=== PATIENT | female | born 1995 | race Caucasian/White ===

== ENCOUNTER 2023-08-10 15:49 | Emergency (ER) | payer BC, MEDICAID ==
[~2023-08-10] VITALS: Ht 162.6 cm; Wt 88.5 kg
[2023-08-10 16:29] VITALS: O2SAT 98
[2023-08-10 16:35] LABS: BASOPHILS % 0.3 % (0.0-2.0); EOSINOPHILS % 0.1 % (0.0-5.0); HEMATOCRIT. 42.2 % (36.0-48.0); HEMOGLOBIN. 14.2 g/dL (12.0-16.0); LYMPHOCYTES % 11.8 % (20.0-50.0); MEAN CORPUSCULAR HEMOGLOBIN 30.8 pg (28.0-32.0); MEAN CORPUSCULAR HGB CONC 33.7 g/dL (31.0-37.0); MEAN CORPUSCULAR VOLUME 91.3 fL (81.0-99.0); MEAN PLATELET VOLUME 9.5 fl (7.4-10.4); MONOCYTES % 4.9 % (2.0-8.0); NEUTROPHILS % 82.9 % (40.0-76.0); PLATELET 270 x1000/uL (130-400); RED BLOOD CELL COUNT 4.63 mill/uL (4.2-5.4); RED CELL DISTRIBUTION WIDTH 14.3 % (11.6-14.6); WHITE BLOOD COUNT 16.2 x1000/uL (4.5-11.0)
[2023-08-10 16:44] LABS: CLARITY URINE CLOUDY (CLEAR); COLOR URINE YELLOW (YELLOW); GLUCOSE URINE NEGATIVE (NEGATIVE); KETONES URINE 1+ (NEGATIVE); LEUKOCYTE ESTERASE URINE NEGATIVE (NEGATIVE); NITRITE URINE NEGATIVE (NEGATIVE); OCCULT BLOOD URINE NEGATIVE (NEGATIVE); PH URINE 7.5 (4.5-8.0); PROTEIN URINE NEGATIVE (NEGATIVE); SPECIFIC GRAVITY URINE 1.008 (1.005-1.030); UROBILINOGEN URINE 0.2 E.U./dL (0.2-1.0)
[2023-08-10 16:50] LABS: ALANINE AMINOTRANSFERASE 27 IU/L (10-49); ALBUMIN 4.8 g/dL (3.2-4.8); ASPARTATE AMINOTRANSFERASE 11 IU/L (<34); BILIRUBIN TOTAL 0.7 mg/dL (0.1-1.0); CALCIUM 10.1 mg/dL (8.7-10.4); CARBON DIOXIDE 27 mEq/L (21-32); CHLORIDE 103 mEq/L (98-107); CREATININE 0.7 mg/dL (0.6-1.0); GLUCOSE 113 mg/dL (70-105); POTASSIUM 4.2 mEq/L (3.5-5.1); PROTEIN TOTAL 7.8 g/dL (6.0-8.3); SODIUM 137 mEq/L (136-145); UREA NITROGEN BLOOD 6 mg/dL (9-23)
[2023-08-10 17:25] LABS: BACTERIA URINE 1+; RBC URINE 0-2 /hpf (0-2); SQUAMOUS EPITHELIAL CELL URINE 1+ /lpf (RARE/1+); WBC URINE 0-2 /hpf (0-2)
[2023-08-10] MEDS ORDERED: MAGNESIUM/ALUMINUM HYDROXIDE/SIMETHICONE 30ML UDC PO STA (18:05)
[2023-08-10] MEDS ORDERED: ONDANSETRON 4MG ODT PO STA (18:05)
[2023-08-10] MEDS ORDERED: DICYCLOMINE 10 MG/5 ML ORAL SYR PO STA (18:05)
[2023-08-10] MEDS ORDERED: SODIUM CHLORIDE 0.9% 1,000 ML IV ONE (18:15)
[2023-08-10] MEDS ORDERED: CAPSAICIN 0.075% CREAM 60GM TOP PRN (18:15)
[2023-08-10] MEDS ORDERED: HALOPERIDOL LACTATE 5MG/ML VIAL IM ONE (18:15)
[2023-08-10] MEDS ORDERED: MAGNESIUM/ALUMINUM HYDROXIDE/SIMETHICONE 30ML UDC PO NR (20:45)
[2023-08-10] MEDS ORDERED: ONDANSETRON 4MG ODT PO NR (20:45)
[2023-08-10] MEDS ORDERED: HALOPERIDOL LACTATE 5MG/ML VIAL IM NR (20:45)
[2023-08-10 22:03] VITALS: BP 135/66; PULSE 96; RESP 16; TEMP 98.4
== END 2023-08-10 22:06 | disposition home or self-care (01) ==
LOC: ER 15:49
DX: K29.70 Gastritis, unspecified, without bleeding (principal); Z98.890 Other specified postprocedural states
CPT/HCPCS: 99284; 96360; 96361; 71045; 80053; 81003; 81025; 83690; 85025; 36415; 96372; Q0162; J1630; J7030

== ENCOUNTER 2023-08-15 07:25 | Emergency (ER) | payer BC, MEDICAID ==
[~2023-08-15] VITALS: Ht 165.1 cm; Wt 90.0 kg
[2023-08-15 07:32] VITALS: BP 144/79; PULSE 106; RESP 20; TEMP 97.7; O2SAT 97
[2023-08-15] MEDS ORDERED: KETOROLAC 60MG/2ML VIAL IM STA (08:38)
[2023-08-15] MEDS ORDERED: ONDANSETRON 4MG ODT PO ONE (09:00)
[2023-08-15 09:09] LABS: BASOPHILS % 0.4 % (0.0-2.0); EOSINOPHILS % 0.4 % (0.0-5.0); HEMATOCRIT. 41.1 % (36.0-48.0); HEMOGLOBIN. 13.5 g/dL (12.0-16.0); MEAN CORPUSCULAR HEMOGLOBIN 30.4 pg (28.0-32.0); MEAN CORPUSCULAR HGB CONC 32.9 g/dL (31.0-37.0); MEAN CORPUSCULAR VOLUME 92.5 fL (81.0-99.0); MEAN PLATELET VOLUME 9.2 fl (7.4-10.4); MONOCYTES % 5.2 % (2.0-8.0); PLATELET 279 x1000/uL (130-400); RED BLOOD CELL COUNT 4.44 mill/uL (4.2-5.4); RED CELL DISTRIBUTION WIDTH 13.9 % (11.6-14.6); WHITE BLOOD COUNT 12.5 x1000/uL (4.5-11.0)
[2023-08-15 09:19] LABS: ALANINE AMINOTRANSFERASE 10 IU/L (10-49); ALBUMIN 4.4 g/dL (3.2-4.8); ASPARTATE AMINOTRANSFERASE 9 IU/L (<34); BILIRUBIN TOTAL 0.6 mg/dL (0.1-1.0); CALCIUM 9.7 mg/dL (8.7-10.4); CARBON DIOXIDE 22 mEq/L (21-32); CHLORIDE 107 mEq/L (98-107); CREATININE 0.6 mg/dL (0.6-1.0); GLUCOSE 108 mg/dL (70-105); POTASSIUM 3.9 mEq/L (3.5-5.1); PROTEIN TOTAL 7.4 g/dL (6.0-8.3); SODIUM 137 mEq/L (136-145); UREA NITROGEN BLOOD 6 mg/dL (9-23)
[2023-08-15 09:41] LABS: HCG SCREEN POSITIVE
[2023-08-15 10:29] LABS: CLARITY URINE CLEAR (CLEAR); COLOR URINE YELLOW (YELLOW); GLUCOSE URINE NEGATIVE (NEGATIVE); KETONES URINE NEGATIVE (NEGATIVE); LEUKOCYTE ESTERASE URINE NEGATIVE (NEGATIVE); NITRITE URINE NEGATIVE (NEGATIVE); OCCULT BLOOD URINE NEGATIVE (NEGATIVE); PH URINE 8.5 (4.5-8.0); PROTEIN URINE NEGATIVE (NEGATIVE); SPECIFIC GRAVITY URINE 1.018 (1.005-1.030); UROBILINOGEN URINE 0.2 E.U./dL (0.2-1.0)
[2023-08-15] MEDS ORDERED: FAMOTIDINE 20MG TABLET PO ONE (10:30)
== END 2023-08-15 11:20 | disposition home or self-care (01) ==
LOC: ER 07:45
DX: O26.891 Other specified pregnancy related conditions, first trimester (principal); Z3A.01 Less than 8 weeks gestation of pregnancy
CPT/HCPCS: 36415; 76705; 76801; 80053; 81003; 84702; 84703; 85025; 99284

== ENCOUNTER 2023-09-21 08:17 | Emergency (ER) | payer BC, MEDICAID ==
[~2023-09-21] VITALS: Ht 162.6 cm; Wt 91.0 kg
[2023-09-21 08:25] VITALS: O2SAT 99
[2023-09-21 08:51] LABS: BASOPHILS % 0.4 % (0.0-2.0); HEMATOCRIT. 36.2 % (36.0-48.0); HEMOGLOBIN. 12.4 g/dL (12.0-16.0); LYMPHOCYTES % 7.6 % (20.0-50.0); MEAN CORPUSCULAR HEMOGLOBIN 31.5 pg (28.0-32.0); MEAN CORPUSCULAR HGB CONC 34.1 g/dL (31.0-37.0); MEAN CORPUSCULAR VOLUME 92.3 fL (81.0-99.0); MONOCYTES % 3.4 % (2.0-8.0); NEUTROPHILS % 88.6 % (40.0-76.0); PLATELET 272 x1000/uL (130-400); RED BLOOD CELL COUNT 3.93 mill/uL (4.2-5.4); RED CELL DISTRIBUTION WIDTH 15.1 % (11.6-14.6); WHITE BLOOD COUNT 15.7 x1000/uL (4.5-11.0)
[2023-09-21] MEDS: SODIUM CHLORIDE 0.9% 1,000 ML IV ONE (09:06)
[2023-09-21] MEDS: ONDANSETRON HCL 4MG/2ML INJ IV STA ×2 (09:06→10:15)
[2023-09-21 09:11] LABS: PROTHROMBIN TIME 10.7 sec (9.6-11.0)
[2023-09-21 09:26] LABS: ALANINE AMINOTRANSFERASE 26 IU/L (10-49); ALBUMIN 4.3 g/dL (3.2-4.8); ASPARTATE AMINOTRANSFERASE 16 IU/L (<34); B-HCG QUANTITATIVE 105969 mIU/mL (<3); BILIRUBIN TOTAL 0.8 mg/dL (0.1-1.0); CALCIUM 9.3 mg/dL (8.7-10.4); CARBON DIOXIDE 22 mEq/L (21-32); CHLORIDE 104 mEq/L (98-107); GLUCOSE 120 mg/dL (70-105); POTASSIUM 3.6 mEq/L (3.5-5.1); SODIUM 136 mEq/L (136-145); UREA NITROGEN BLOOD 6 mg/dL (9-23)
[2023-09-21 09:40] LABS: CREATININE 0.4 mg/dL (0.6-1.0)
[2023-09-21 09:51] LABS: CLARITY URINE CLEAR (CLEAR); COLOR URINE YELLOW (YELLOW); GLUCOSE URINE NEGATIVE (NEGATIVE); KETONES URINE 4+ (NEGATIVE); LEUKOCYTE ESTERASE URINE 1+ (NEGATIVE); NITRITE URINE NEGATIVE (NEGATIVE); OCCULT BLOOD URINE 1+ (NEGATIVE); PROTEIN URINE TRACE (NEGATIVE); SPECIFIC GRAVITY URINE 1.023 (1.005-1.030)
[2023-09-21 10:12] LABS: RBC URINE 0-2 /hpf (0-2); SQUAMOUS EPITHELIAL CELL URINE 2+ /lpf (RARE/1+)
[2023-09-21 10:13] LABS: BACTERIA URINE 3+
[2023-09-21] MEDS: MORPHINE SULFATE 4 MG/ML CPJ (NOT FOR IM USE) IV STA (10:15)
[2023-09-21 11:05] VITALS: BP 127/71; PULSE 75; RESP 17; TEMP 98.1
[2023-09-21] MEDS ORDERED: DICY20TA2 MT (11:06)
[2023-09-21] MEDS ORDERED: ONDA4TAB11 PO (11:06)
[2023-09-21] MEDS: DICYCLOMINE HCL 20MG TABLET PO SCH (11:13)
== END 2023-09-21 11:22 | disposition home or self-care (01) ==
LOC: ER 08:17
DX: O99.611 Diseases of the digestive system complicating pregnancy, first trimester (principal); R10.9 Unspecified abdominal pain; Z3A.11 11 weeks gestation of pregnancy
CPT/HCPCS: 80053; 81003; 84702; 83690; 85025; 85610; 36415; 76801; 76817; 96361; 96374; 96375; 99285; J2405; J2270; J7030; Z7610 ×2

== ENCOUNTER 2024-01-27 01:20 | Emergency (ER) | payer MEDICAID ==
[~2024-01-27] VITALS: Ht 162.6 cm; Wt 82.0 kg
[~2024-01-27 01:20] MED LIST: DICY20TA2 MT; ONDA4TAB11 PO
[2024-01-27 01:32] VITALS: TEMP 99.7; O2SAT 100
[2024-01-27] MEDS: KETOROLAC 30MG/ML VIAL IV ONE (02:25)
[2024-01-27] MEDS: HALOPERIDOL LACTATE 5MG/ML VIAL IM ONE (02:27)
[2024-01-27] MEDS: METOCLOPRAMIDE HCL 10MG/2ML VIAL IV STA (02:27)
[2024-01-27] MEDS: SODIUM CHLORIDE 0.9% 1,000 ML IV ONE (02:35)
[2024-01-27 03:13] LABS: BASOPHILS % 0.6 % (0.0-2.0); EOSINOPHILS % 0.1 % (0.0-5.0); HEMATOCRIT. 39.3 % (36.0-48.0); HEMOGLOBIN. 12.9 g/dL (12.0-16.0); LYMPHOCYTES % 14.6 % (20.0-50.0); MEAN CORPUSCULAR HEMOGLOBIN 28.1 pg (28.0-32.0); MEAN CORPUSCULAR HGB CONC 32.8 g/dL (31.0-37.0); MEAN CORPUSCULAR VOLUME 85.7 fL (81.0-99.0); MEAN PLATELET VOLUME 9.7 fl (7.4-10.4); MONOCYTES % 7.3 % (2.0-8.0); NEUTROPHILS % 77.4 % (40.0-76.0); PLATELET 286 x1000/uL (130-400); RED BLOOD CELL COUNT 4.58 mill/uL (4.2-5.4); RED CELL DISTRIBUTION WIDTH 17.1 % (11.6-14.6); WHITE BLOOD COUNT 12.8 x1000/uL (4.5-11.0)
[2024-01-27 03:17] LABS: CHLORIDE 102 mEq/L (98-107); POTASSIUM 3.1 mEq/L (3.5-5.1); SODIUM 138 mEq/L (136-145)
[2024-01-27 03:19] LABS: CARBON DIOXIDE 25 mEq/L (21-32)
[2024-01-27 03:20] LABS: CALCIUM 9.6 mg/dL (8.7-10.4)
[2024-01-27 03:24] LABS: CREATININE 0.8 mg/dL (0.6-1.0); GLUCOSE 127 mg/dL (70-105); UREA NITROGEN BLOOD 13 mg/dL (9-23)
[2024-01-27 03:26] LABS: ALANINE AMINOTRANSFERASE 15 IU/L (10-49); ASPARTATE AMINOTRANSFERASE 19 IU/L (<34); BILIRUBIN DIRECT 0.4 mg/dL (<=3.0)
[2024-01-27 03:27] LABS: BILIRUBIN TOTAL 1.1 mg/dL (0.1-1.0); PROTEIN TOTAL 7.6 g/dL (6.0-8.3)
[2024-01-27 03:51] LABS: ETHANOL BLOOD < 10 mg/dL (<10)
[2024-01-27 04:00] VITALS: BP 153/72; PULSE 73; RESP 24
[2024-01-27] MEDS ORDERED: METO-293 MT (05:17)
== END 2024-01-27 05:45 | disposition home or self-care (01) ==
LOC: ER 01:23
DX: R07.89 Other chest pain (principal); R10.9 Unspecified abdominal pain; F12.10 Cannabis abuse, uncomplicated; J45.909 Unspecified asthma, uncomplicated; Z98.890 Other specified postprocedural states
CPT/HCPCS: 80076; 80048; 80320; 83605; 83690; 85025; 36415; 96361; 96372; 96374; 96375; 99284; J1630; J1885; J2765; J7030; Z7610 ×4; G0480

== ENCOUNTER 2024-03-08 11:52 | Emergency (ER) | payer MEDICAID ==
[~2024-03-08] VITALS: Ht 160 cm; Wt 73.0 kg
[~2024-03-08 11:52] MED LIST changes: +METO-293 MT
[2024-03-08 11:54] VITALS: O2SAT 99
[2024-03-08 12:59] LABS: BASOPHILS % 0.5 % (0.0-2.0); HEMATOCRIT. 38.8 % (36.0-48.0); HEMOGLOBIN. 12.8 g/dL (12.0-16.0); LYMPHOCYTES % 8.4 % (20.0-50.0); MEAN CORPUSCULAR HEMOGLOBIN 28.9 pg (28.0-32.0); MEAN CORPUSCULAR HGB CONC 33.1 g/dL (31.0-37.0); MEAN CORPUSCULAR VOLUME 87.4 fL (81.0-99.0); MEAN PLATELET VOLUME 9.2 fl (7.4-10.4); NEUTROPHILS % 87.1 % (40.0-76.0); PLATELET 252 x1000/uL (130-400); RED BLOOD CELL COUNT 4.44 mill/uL (4.2-5.4); RED CELL DISTRIBUTION WIDTH 14.9 % (11.6-14.6); WHITE BLOOD COUNT 11.2 x1000/uL (4.5-11.0)
[2024-03-08 13:05] LABS: CHLORIDE 102 mEq/L (98-107); POTASSIUM 3.3 mEq/L (3.5-5.1); SODIUM 137 mEq/L (136-145)
[2024-03-08 13:06] LABS: CARBON DIOXIDE 28 mEq/L (21-32)
[2024-03-08 13:11] LABS: CREATININE 0.7 mg/dL (0.6-1.0); GLUCOSE 127 mg/dL (70-105)
[2024-03-08 13:12] LABS: UREA NITROGEN BLOOD 8 mg/dL (9-23)
[2024-03-08 13:13] LABS: ALANINE AMINOTRANSFERASE 67 IU/L (10-49); ALBUMIN 4.6 g/dL (3.2-4.8); ASPARTATE AMINOTRANSFERASE 35 IU/L (<34); BILIRUBIN DIRECT 0.3 mg/dL (<=3.0)
[2024-03-08 13:14] LABS: BILIRUBIN TOTAL 0.7 mg/dL (0.1-1.0)
[2024-03-08 13:16] LABS: HCG SCREEN NEGATIVE
[2024-03-08] MEDS: SODIUM CHLORIDE 0.9% 1,000 ML IV ONE (13:20)
[2024-03-08] MEDS: METOCLOPRAMIDE HCL 10MG/2ML VIAL IV STA (13:20)
[2024-03-08] MEDS: HALOPERIDOL LACTATE 5MG/ML VIAL IM ONE (13:31)
[2024-03-08] MEDS: FAMOTIDINE 20MG/2ML VIAL IV STA (13:31)
[2024-03-08] MEDS: KETOROLAC 30MG/ML VIAL IV NR (15:00)
[2024-03-08] MEDS: DICYCLOMINE HCL 10MG/ML 2ML VIAL IM ONE (15:05)
[2024-03-08 17:32] VITALS: BP 122/67; PULSE 68; RESP 15; TEMP 98.8
== END 2024-03-08 17:35 | disposition home or self-care (01) ==
LOC: ER 12:46
DX: R11.10 Vomiting, unspecified (principal); F12.20 Cannabis dependence, uncomplicated; J45.909 Unspecified asthma, uncomplicated; Z98.890 Other specified postprocedural states
CPT/HCPCS: 80076; 80048; 84703; 83690; 85025; 36415; 96361; 96372; 96374; 96375; 99284; J0500; J3490; J1630; J1885; J2765; J7030; Z7610 ×2